=== PATIENT | male | born 1965 | race Caucasian/White ===

== ENCOUNTER → 2018-03-15 | Outpatient (CLI) | payer OTHER ==
--- NOTE | 2018-03-15 16:52 | RAD ---
Indication:Disability assessment TECHNIQUE: 2 views of the right knee COMPARISON:None FINDINGS/ impression: No acute fracture or dislocation. No significant osteoarthritic. No knee joint effusion. Electronically signed by: Alek Bocanegra DO (03/15/2018 4:48 PM) [facility]
--- NOTE | 2018-03-15 16:54 | RAD ---
Indication: Disability assessment TECHNIQUE: 3 views of the lumbar spine COMPARISON: None FINDINGS: There are 5 lumbar type vertebral bodies. Minimal anterior superior endplate L1 compression deformity seen. No significant intervertebral disc space narrowing or productive changes. Moderate facet arthropathy at L5-S1. SI joints within normal limits. IMPRESSION: 1. Possibly minimal L1 compression deformity, age indeterminate. Clinically correlate with focal tenderness. 2. No significant evidence of degenerative disc disease. Electronically signed by: Alek Bocanegra DO (03/15/2018 4:50 PM) [facility]
== END | disposition home or self-care (01) ==
LOC: RAD 09:34
PROVIDERS: ATTEND Surgery
DX: Z02.71 Encounter for disability determination (principal); M12.88 Other specific arthropathies, not elsewhere classified, other specified site; M43.8X6 Other specified deforming dorsopathies, lumbar region
CPT/HCPCS: 72100; 73560